=== PATIENT | male | born 1995 | race Caucasian/White ===

== ENCOUNTER 2016-09-19 18:40 | Emergency (ER) | payer BC, OTHER ==
[2016-09-19 18:57] VITALS: BP 153/91; PULSE 64; RESP 20; TEMP 97.1
--- NOTE | 2016-09-19 19:59 | ED ---
General Adult HPI - General Chief complaint: Dental/Oral Stated complaint: jaw pain Time Seen by Provider: 09/19/16 19:20 Source: patient, RN notes reviewed Mode of arrival: ambulatory Limitations: no limitations - History of Present Illness Initial comments: This is a 21-year-old male who presents with right-sided dental pain for about a week. Patient has tried Motrin and Tylenol without relief. Patient has history of bad dental hygiene and states he has not been able to get into a dentist. Patient denies any drainage or foul odor. Patient denies any fever/ chills. Patient denies any recent shortness breath, chest pain, abdominal pain , nausea/vomiting/diarrhea, back pain, numbness, tingling, hematuria, headache , or visual changes, or any other complaints. - Related Data Previous Rx's Medication Instructions Recorded Permethrin 5% Cream [Elimite] 1 applic TOPICAL ONCE #1 tube 05/18/16 predniSONE 40 mg PO DAILY 5 Days 05/18/16 Amoxicillin 500 mg PO Q12HR 7 Days 09/19/16 traMADol HCl [Ultram] 50 mg PO Q6H #12 tab 09/19/16 Allergies Allergy/AdvReac Type Severity Reaction Status Date / Time No Known Allergies Allergy Verified 05/18/16 19:32 Review of Systems ROS Statement: Those systems with pertinent positive or pertinent negative responses have been documented in the HPI. ROS Other: All systems not noted in ROS Statement are negative. Past Medical History Past Medical History: Sleep Apnea/CPAP/BIPAP Additional Past Medical History / Comment(s): Back Pain; Dyslexia History of Any Multi-Drug Resistant Organisms: None Reported Past Surgical History: Adenoidectomy, Tonsillectomy Past Psychological History: ADD/ADHD, Bipolar, Depression Smoking Status: Current every day smoker Past Alcohol Use History: None Reported Past Drug Use History: None Reported General Exam - General Exam Comments Initial Comments: General: The patient is awake and alert, in no distress, and does not appear acutely ill. Eye: Pupils are equal, round and reactive to light, extra-ocular movements are intact. No nystagmus. There is normal conjunctiva bilaterally. No signs of icterus. Ears: TMs pink and pearly with intact cone of light bilaterally. Normal external ear canals Nose: Nasal turbinates pink and moist Mouth and throat: Tooth #30 is missing and tender to palpation with a tongue blade, there is widespread tooth decay, no sign of abscess, purulent drainage, surrounding erythema. No facial swelling. There is mild tenderness to the right side lower jaw. There are moist mucous membranes and no oral lesions. Neck: The neck is supple, there is no tenderness or JVD. Cardiovascular: There is a regular rate and rhythm. No murmur, rub or gallop is appreciated. Respiratory: Lungs are clear to auscultation, respirations are non-labored, breath sounds are equal. No wheezes, stridor, rales, or rhonchi. Musculoskeletal: Normal ROM, no tenderness. Strength 5/5. Sensation intact. Radial pulses equal bilaterally 2+. Neurological: A&O x 3. CN II-XII intact, There are no obvious motor or sensory deficits. Coordination appears grossly intact. Speech is normal. Skin: Skin is warm and dry and no rashes or lesions are noted. Psychiatric: Cooperative, appropriate mood & affect, normal judgment. Limitations: no limitations Course Vital Signs 09/19/16 18:54 Temperature 97.1 F L Pulse Rate 64 Respiratory 20 Rate Blood Pressure 153/91 O2 Sat by Pulse 96 Oximetry Medical Decision Making - Medical Decision Making This is a 21-year-old male presents with right-sided dental pain 1 week. On physical exam Tooth #30 is missing, there is widespread tooth decay, no sign of abscess, purulent drainage, surrounding erythema. No facial swelling. There is mild tenderness to the right side lower jaw. There are moist mucous membranes and no oral lesions. Discussed the patient will be put on a course of amoxicillin. I discussed that patient needs to follow-up with a dentist. I discussed Tylenol or Motrin as needed for pain and tramadol for breakthrough pain. Patient be given a dental referral today. I discussed return parameters. Discussed that patient should follow up with PCP in one to 2 days or return to the [facility] for any worsening symptoms or for any further concerns. Patient was receptive to this plan and patient will be discharged home. Disposition Clinical Impression: Pain, dental Disposition: HOME SELF-CARE Condition: Good Instructions: Toothache (ED) Additional Instructions: Please use antibiotics as prescribed. Please use pain medication as prescribed. May use [id number] Tylenol or Motrin for pain. Use warm compresses to the area for pain. Please follow-up with dentist as soon as possible. [facility] dental plan: [address] [place] [address], . [employer]: Have to pay $50 for x-rays and the rest is covered. [phone].Please follow up with PCP tomorrow or return to the [facility] for any worsening symptoms or for any further concerns. Prescriptions: Amoxicillin 500 mg PO Q12HR 7 Days traMADol HCl [Ultram] 50 mg PO Q6H #12 tab Time of Disposition: 19:57
== END 2016-09-19 20:05 | disposition home or self-care (01) ==
LOC: EC 18:40
DX: K08.89 Other specified disorders of teeth and supporting structures (principal); F17.200 Nicotine dependence, unspecified, uncomplicated; G47.30 Sleep apnea, unspecified; Z79.52 Long term (current) use of systemic steroids

== ENCOUNTER 2017-10-09 08:40 | Emergency (ER) | payer BC, OTHER ==
[2017-10-09 08:52] VITALS: BP 165/90; PULSE 65; RESP 18; TEMP 97
--- NOTE | 2017-10-09 09:05 | ED ---
General Adult HPI - General Chief complaint: ENT Stated complaint: Ear infection Time Seen by Provider: 10/09/17 08:57 Source: patient, RN notes reviewed Mode of arrival: ambulatory Limitations: no limitations - History of Present Illness Initial comments: 22-year-old male presents to the emergency department with a chief complaint of left ear pain. He states he's had this for the past 3 or 4 days. It radiates into the jaw. Patient denies any difficulty opening closing off any pain into the neck. He denies any fever chills with this. He started Motrin he started Tylenol he started soap water gargles nothing seems to be helping. He states that he was concerned due to his continued pain so he thought that he should be seen. There is been no other symptoms and the patient. He is otherwise feeling well. Patient denies any recent fever, chills, shortness of breath, chest pain, back pain, abdominal pain, nausea vomiting, numbness or tingling, dysuria or hematuria, constipation or diarrhea, headaches or visual changes, or any other current symptoms. - Related Data Home Medications Medication Instructions Recorded Confirmed Ibuprofen [Motrin] 800 mg PO TID PRN 10/09/17 10/09/17 Previous Rx's Medication Instructions Recorded Ibuprofen [Motrin] 600 mg PO Q6HR PRN #20 tab 10/09/17 Penicillin V Potassium [Pen Vee K] 500 mg PO QID 7 Days tablet 10/09/17 traMADol HCl [Ultram] 50 mg PO Q6H PRN #10 tab 10/09/17 Allergies Allergy/AdvReac Type Severity Reaction Status Date / Time No Known Allergies Allergy Verified 10/09/17 08:56 Review of Systems ROS Statement: Those systems with pertinent positive or pertinent negative responses have been documented in the HPI. ROS Other: All systems not noted in ROS Statement are negative. Past Medical History Past Medical History: Sleep Apnea/CPAP/BIPAP Additional Past Medical History / Comment(s): Back Pain; Dyslexia History of Any Multi-Drug Resistant Organisms: None Reported Past Surgical History: Adenoidectomy, Tonsillectomy Past Psychological History: ADD/ADHD, Bipolar, Depression Smoking Status: Current every day smoker Past Alcohol Use History: None Reported Past Drug Use History: None Reported General Exam - General Exam Comments Initial Comments: General exam: Alert, active, comfortable in no apparent distress Head: Normocephalic Eyes: Normal reaction of pupils, equal size, normal range of extraocular motion Ears: normal external ear canals, pink tympanic membranes with normal cone of light Nose: clear with pink turbinates Mouth: Patient has extensive dental cavities no abscess noted. No enlarged comes. Throat: no erythema or exudates with normal sized tonsils Neck: no masses, no nuchal rigidity Chest: no chest wall deformity Lungs: equal air entry with no crackles or wheeze CVS: S1 and S2 normal with no audible mumurs, regular rhythm, femorals equal on both sides. Spine: no scoliosis or deformity Skin: no rashes Neurological: No focal deficits, tone is normal in all 4 extremities Limitations: no limitations Course Vital Signs 10/09/17 08:50 Temperature 97.0 F L Pulse Rate 65 Respiratory 18 Rate Blood Pressure 165/90 O2 Sat by Pulse 100 Oximetry Medical Decision Making - Medical Decision Making 22-year-old male presents for left ear pain. This time suspicion is most likely due to dental issue. This time we discussed follow-up with a dentist. We discussed return parameters all questions. Patient stated that he understood and he is agreement this plan. All questions have been answered. This time patient will be discharged. Disposition Clinical Impression: Dental caries Disposition: HOME SELF-CARE Condition: Stable Instructions: Dental Abscess (ED) Additional Instructions: Please use medication as discussed. Please follow up with family doctor if symptoms have not improved over the next two days. Please return to the emergency room if your symptoms increase or worsen or for any other concerns. [facility] [address] [address] [phone] (existing clients only) For new clients: [phone] 1st consult: $50 (includes Xrays) Usually 30% less then private dentist for visits after. [employer] Have to pay $50 for Xrays anmd rest is covered. [phone] Prescriptions: Ibuprofen [Motrin] 600 mg PO Q6HR PRN #20 tab PRN Reason: Pain Penicillin V Potassium [Pen Vee K] 500 mg PO QID 7 Days tablet traMADol HCl [Ultram] 50 mg PO Q6H PRN #10 tab PRN Reason: Pain Referrals: Gloria Sanabria MD [Primary Care Provider] - 1-2 days Time of Disposition: 09:04
== END 2017-10-09 09:20 | disposition home or self-care (01) ==
LOC: EC 08:40
DX: K02.9 Dental caries, unspecified (principal); F17.200 Nicotine dependence, unspecified, uncomplicated; G47.30 Sleep apnea, unspecified; Z99.89 Dependence on other enabling machines and devices
CPT/HCPCS: 99282

== ENCOUNTER 2018-08-08 17:27 | Emergency (ER) | payer OTHER ==
[2018-08-08 18:41] VITALS: BP 143/91; PULSE 82; RESP 18; TEMP 98.6
--- NOTE | 2018-08-08 18:47 | ED ---
General Adult HPI - General Chief complaint: Upper Respiratory Infection Stated complaint: COUGH, FEVER Time Seen by Provider: 08/08/18 18:20 Source: patient, RN notes reviewed Mode of arrival: ambulatory Limitations: no limitations - History of Present Illness Initial comments: Patient 23-year-old male presented to the emergency room today with a chief complaint of cough congestion over the past week. Patient does admit that he's had some sputum production at times. He does admit to feeling hot and cold. He denies any other complaints or symptoms. Denies any recorded temperatures. Does admit that other people also sick with similar symptoms. Patient denies any recent fever, chills, shortness of breath, chest pain, back pain, abdominal pain, nausea or vomiting, numbness or tingling, headaches or visual changes, or any other complaints. - Related Data Home Medications Medication Instructions Recorded Confirmed Ibuprofen [Motrin] 800 mg PO TID PRN 10/09/17 10/09/17 Previous Rx's Medication Instructions Recorded Ibuprofen [Motrin] 600 mg PO Q6HR PRN #20 tab 10/09/17 Penicillin V Potassium [Pen Vee K] 500 mg PO QID 7 Days tablet 10/09/17 traMADol HCl [Ultram] 50 mg PO Q6H PRN #10 tab 10/09/17 Allergies Allergy/AdvReac Type Severity Reaction Status Date / Time No Known Allergies Allergy Verified 10/09/17 08:56 Review of Systems ROS Statement: Those systems with pertinent positive or pertinent negative responses have been documented in the HPI. ROS Other: All systems not noted in ROS Statement are negative. Past Medical History Past Medical History: Sleep Apnea/CPAP/BIPAP Additional Past Medical History / Comment(s): Back Pain; Dyslexia History of Any Multi-Drug Resistant Organisms: None Reported Past Surgical History: Adenoidectomy, Tonsillectomy Past Psychological History: ADD/ADHD, Bipolar, Depression Smoking Status: Current every day smoker Past Alcohol Use History: None Reported Past Drug Use History: None Reported General Exam - General Exam Comments Initial Comments: General: The patient is awake and alert, in no distress, and does not appear acutely ill. Eye: There is normal conjunctiva bilaterally. No signs of icterus. Ears, nose, mouth and throat: There are moist mucous membranes and no oral lesions. Neck: The neck is supple, there is no tenderness or JVD. TMs clear bilaterally. Cardiovascular: There is a regular rate and rhythm. No murmur, rub or gallop is appreciated. Respiratory: Lungs are clear to auscultation, respirations are non-labored, breath sounds are equal. No wheezes, stridor, rales, or rhonchi. Musculoskeletal: Normal ROM, no tenderness. Neurological: A&O x 3. CN II-XII intact, There are no obvious motor or sensory deficits. Coordination appears grossly intact. Speech is normal. Skin: Skin is warm and dry and no rashes or lesions are noted. Psychiatric: Cooperative, appropriate mood & affect, normal judgment. Limitations: no limitations Course Vital Signs 08/08/18 18:40 Temperature 98.6 F Pulse Rate 82 Respiratory 18 Rate Blood Pressure 143/91 O2 Sat by Pulse 96 Oximetry Medical Decision Making - Medical Decision Making chest x-ray reviewed negative for any sign of pneumonia. Results were discussed with the patient. Mostly viral illness. Advised follow-up family doctor return to emergency room if any symptoms increase or worsen or for any other concerns. Disposition Clinical Impression: Upper respiratory infection Disposition: HOME SELF-CARE Condition: Good Instructions: Upper Respiratory Infection (ED) Additional Instructions: Please use medication as discussed. Please follow-up with family doctor in the next 2 days. Please return to emergency room if the symptoms increase or worsen or for any other concerns. Is patient prescribed a controlled substance at d/c from ED?: No Referrals: Gloria Sanabria MD [Primary Care Provider] - 1-2 days Time of Disposition: 19:52
--- NOTE | 2018-08-08 23:51 | XR ---
EXAMINATION TYPE: XR chest 2V DATE OF EXAM: 08/08/2018 COMPARISON: March 08, 2016 HISTORY: Cough TECHNIQUE: Frontal and lateral views of the chest are obtained. FINDINGS: Heart and mediastinum are normal. Lungs are clear. Diaphragm is normal. Bony thorax appear s normal. IMPRESSION: Normal chest. No change.
== END 2018-08-08 20:17 | disposition home or self-care (01) ==
LOC: EC 17:27
DX: J06.9 Acute upper respiratory infection, unspecified (principal); F17.200 Nicotine dependence, unspecified, uncomplicated; G47.30 Sleep apnea, unspecified; Z99.89 Dependence on other enabling machines and devices
CPT/HCPCS: 71046; 99283

== ENCOUNTER 2019-12-26 14:38 | Emergency (ER) | payer OTHER ==
[2019-12-26 14:42] VITALS: PULSE 67; RESP 20; TEMP 97.9
[2019-12-26] MEDS ORDERED: DIPH,PERTUS(ACELL)TETVAC-LF 0.5 ML VIAL IM ONE (14:50)
[2019-12-26] MEDS ORDERED: IBUPROFEN 600 MG TAB PO STA (14:50)
[2019-12-26] MEDS ORDERED: LIDOCAINE 1% INJ 10MG/ML (20 ML MDV) SQ ONE (14:50)
--- NOTE | 2019-12-26 14:55 | ED ---
Wound/Laceration HPI - General Chief Complaint: Wound/Laceration Stated Complaint: lac on pointer finger Time Seen by Provider: 12/26/19 14:45 Source: patient Mode of arrival: ambulatory Limitations: no limitations - History of Present Illness Initial Comments: 24 year-old male patient presents to the emergency department today for evaluation of injury to the left index finger. Patient states he is working on a car when the radiator fell down on top of his hand causing laceration to the finger. States he is having significant amount of pain to the area. Denies taking any medication for his symptoms. States his last tetanus vaccine was about 10 years ago. Denies any anticoagulant or antiplatelet medications. Denies any other injuries.Patient denies any headache, neck pain, back pain, chest pain, shortness of breath, dizziness, weakness, abdominal pain, nausea, vomiting, or difficulties with bowel movements or urination. - Related Data Home Medications Medication Instructions Recorded Confirmed Ibuprofen [Motrin] 800 mg PO TID PRN 10/09/17 10/09/17 Previous Rx's Medication Instructions Recorded Ibuprofen [Motrin] 600 mg PO Q6HR PRN #20 tab 10/09/17 Penicillin V Potassium [Pen Vee K] 500 mg PO QID 7 Days tablet 10/09/17 traMADol HCl [Ultram] 50 mg PO Q6H PRN #10 tab 10/09/17 Ibuprofen [Motrin] 600 mg PO Q6HR PRN #30 day 08/08/18 Penicillin V Potassium [Pen Vee K] 500 mg PO QID #40 tablet 08/08/18 Allergies Allergy/AdvReac Type Severity Reaction Status Date / Time No Known Allergies Allergy Verified 12/26/19 14:42 Review of Systems ROS Statement: Those systems with pertinent positive or pertinent negative responses have been documented in the HPI. ROS Other: All systems not noted in ROS Statement are negative. Past Medical History Past Medical History: Sleep Apnea/CPAP/BIPAP Additional Past Medical History / Comment(s): Back Pain; Dyslexia History of Any Multi-Drug Resistant Organisms: None Reported Past Surgical History: Adenoidectomy, Tonsillectomy Past Psychological History: ADD/ADHD, Bipolar, Depression Smoking Status: Current every day smoker Past Alcohol Use History: None Reported Past Drug Use History: Marijuana General Exam Limitations: no limitations General appearance: alert, in no apparent distress, other (This is a well- developed, well-nourished adult male patient in no acute distress. Vital signs upon presentation are temperature 97.9F, pulse 67, respirations 20, blood pressure 146/88, pulse ox 99% on room air.) Eye exam: Present: normal appearance, PERRL, EOMI. Absent: scleral icterus, conjunctival injection, periorbital swelling ENT exam: Present: normal exam, normal oropharynx, mucous membranes moist Respiratory exam: Present: normal lung sounds bilaterally. Absent: respiratory distress, wheezes, rales, rhonchi, stridor Cardiovascular Exam: Present: regular rate, normal rhythm, normal heart sounds. Absent: systolic murmur, diastolic murmur, rubs, gallop, clicks Extremities exam: Present: full ROM, tenderness (Over the PIP joint on the left index finger.), normal capillary refill, other (There is a 2 cm laceration noted over the PIP joint on the left index finger. No active bleeding noted. Skin is otherwise pink, warm, dry. Cap refills less than 3 seconds. Radial pulses 2+ and equal bilaterally. Sensation is intact). Absent: normal inspection, pedal edema, joint swelling, calf tenderness Neurological exam: Present: alert, oriented X3, CN II-XII intact Psychiatric exam: Present: normal affect, normal mood Skin exam: Present: warm, dry, intact, normal color. Absent: rash Course Vital Signs 12/26/19 12/26/19 14:39 15:47 Temperature 97.9 F 97.9 F Pulse Rate 67 67 Respiratory 20 20 Rate Blood Pressure 146/88 135/88 O2 Sat by Pulse 99 99 Oximetry Procedures - Laceration Laceration #1 Consent Obtained: verbal consent Indication: laceration Site: hand (Left index finger) Size (cm): 2 Description: linear Depth: simple, single layer Anesthesia Technique: local infiltration Amount (mls): 5 Pre-repair: irrigated extensively Type of Sutures: nylon Size of Sutures: 5-0 Number of Sutures: 4 Technique: simple, interrupted Patient Tolerated Procedure: well, no complications Medical Decision Making - Medical Decision Making 24 old male patient presents to the emergency department today for evaluation of laceration to the left index finger. Physical examination did reveal a 2 cm laceration over the PIP joint on the left index finger, dorsally. No active bleeding was noted. Neurovascular status is intact. Full range of motion with resistance was intact. X-ray was obtained and showed no bony abnormalities. We did cleanse the area, laceration was repaired as documented. He will be discharged to follow-up with his primary care physician for recheck in 1-2 days. He is educated regarding wound care and suture removal. Return parameters were discussed in detail. He verbalizes understanding and agrees with this plan. - Radiology Data Radiology results: report reviewed, image reviewed 3 views of the left index finger obtained. Report was reviewed in its entirety. Impression by Dr. Mendoza shows no acute displaced fracture or dislocation. Disposition Clinical Impression: Laceration of left index finger Disposition: HOME SELF-CARE Condition: Good Instructions (If sedation given, give patient instructions): Care For Your Stitches (ED), Finger Laceration (ED) Additional Instructions: Keep wound clean and dry. Cleanse twice daily with warm water and antibacterial soap. Monitor for signs of infection including but not limited to redness, swelling, drainage of pus, fever, or chills. Take Tylenol or Motrin for pain control. Return in 7 days to have the stitches removed. Follow-up through primary care physician for recheck in 1-2 days. Return for any new, worsening, or concerning symptoms. Is patient prescribed a controlled substance at d/c from ED?: No Referrals: Gloria Sanabria MD [Primary Care Provider] - 1-2 days Time of Disposition: 15:46
--- NOTE | 2019-12-26 15:09 | XR ---
EXAMINATION TYPE: XR finger LT DATE OF EXAM: 12/26/2019 CLINICAL HISTORY: pain TECHNIQUE: 3 views of the second digit are submitted. COMPARISON: None FINDINGS: No displaced fracture is seen with certainty. Joint spaces are well-preserved. Correlate for soft tissue injury. IMPRESSION: No acute displaced fracture or dislocation.
[2019-12-26 15:48] VITALS: BP 135/88
== END 2019-12-26 15:58 | disposition home or self-care (01) ==
LOC: EC 14:38
DX: S61.211A Laceration without foreign body of left index finger without damage to nail, initial encounter (principal); Z23 Encounter for immunization; G47.30 Sleep apnea, unspecified; F17.200 Nicotine dependence, unspecified, uncomplicated; Z79.899 Other long term (current) drug therapy; W20.8XXA Other cause of strike by thrown, projected or falling object, initial encounter; Y92.009 Unspecified place in unspecified non-institutional (private) residence as the place of occurrence of the external cause
CPT/HCPCS: 73140; 90715; 99283; 12001; 90471; J2001

== ENCOUNTER 2024-01-17 20:05 | Emergency (ER) | payer OTHER ==
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
[2024-01-17 22:31] VITALS: BP 151/90; PULSE 57; RESP 16; TEMP 98
== END 2024-01-17 22:32 | disposition home or self-care (01) ==
LOC: EC 20:05
DX: S09.90XA Unspecified injury of head, initial encounter (principal); Y04.8XXA Assault by other bodily force, initial encounter
CPT/HCPCS: 70450; 72125; 99283; 99284

== ENCOUNTER 2024-04-24 14:59 | Emergency (ER) | payer SELFPAY ==
[2024-04-24 15:08] VITALS: RESP 18; TEMP 97.8
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
[2024-04-24] MEDS: DIPH,PERTUS(ACELL)TETVAC-LF 0.5 ML VIAL IM ONE (16:40)
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
[2024-04-24] MEDS: KETOROLAC 15 MG/ML 1 ML VIAL IM STA (17:36)
[2024-04-24 17:52] VITALS: BP 135/92; PULSE 63
== END 2024-04-24 17:52 | disposition home or self-care (01) ==
LOC: EC 14:59
CPT/HCPCS: 70450; 70486; 72125; 90471; 90715; 96372; 99284